=== PATIENT | male | born 1955 | race Caucasian/White ===

== ENCOUNTER 2019-03-29 05:51 | Inpatient (IN) | payer MEDICARE, BC ==
[2019-03-29] MEDS ORDERED: ACETAMINOPHEN 500 MG TABLET PO ONE (06:00)
[2019-03-29] MEDS ORDERED: CEFAZOLIN 2 Gram 2 GM/50 ML BAG IVPB ONE (06:00)
[2019-03-29] MEDS ORDERED: METOCLOPRAMIDE 10 MG TABLET PO ONE (06:00)
[2019-03-29] MEDS ORDERED: SCOPOLAMINE 1 PATCH TDSY TD ONE (06:00)
[2019-03-29] MEDS ORDERED: FAMOTIDINE 20MG TABLET PO ONE (06:00)
[2019-03-29] MEDS ORDERED: CELECOXIB 100 MG CAPSULE PO ONE (06:00)
[2019-03-29] MEDS ORDERED: RINGERS SOLUTION,LACTATED 1,000 ML IV ONE ×2 (06:49→08:39)
[2019-03-29] MEDS: VANCOMYCIN 1GM/200ML PREMIX 1 GM/200 ML PIGGYBACK IVPB ONE (06:51)
[2019-03-29 07:30] LABS: ABO GROUP O; ANTIBODY SCREEN NEGATIVE (NEGATIVE)
[2019-03-29 07:31] LABS: RH TYPE NEGATIVE
[2019-03-29] MEDS ORDERED: HYDROCODONE/APAP 7.5/325MG TABLET PO PRN (08:06)
[2019-03-29] MEDS ORDERED: NALOXONE 0.4 MG/1 ML VIAL IVP PRN (08:06)
[2019-03-29] MEDS ORDERED: ACETAMINOPHEN W/ CODEINE 300MG/60MG TABLET PO PRN (08:06)
[2019-03-29] MEDS ORDERED: ACETAMINOPHEN 325 MG TAB PO PRN (08:06)
[2019-03-29] MEDS ORDERED: AL HYDROX/MAG HYDROX 30ML UD PO PRN (08:06)
[2019-03-29] MEDS ORDERED: DIPHENHYDRAMINE HCL 25 MG CAPSULE PO PRN (08:06)
[2019-03-29] MEDS ORDERED: BISACODYL 10 MG SUPP RC PRN (08:06)
[2019-03-29] MEDS ORDERED: TRAMADOL HCL 50 MG TABLET PO PRN ×2 (08:06)
[2019-03-29] MEDS ORDERED: KETOROLAC 30 MG/ML VIAL IVP PRN (08:06)
[2019-03-29] MEDS ORDERED: ONDANSETRON HCL IV 4 MG/2 ML VIAL IVP PRN (08:06)
[2019-03-29] MEDS ORDERED: PROMETHAZINE HCL 12.5 MG in 0.9 % SODIUM CHLORIDE 100ML 50 ML IVPB PRN (08:06)
[2019-03-29] MEDS ORDERED: METOCLOPRAMIDE HCL 10 MG/2 ML VIAL IVP PRN (08:06)
[2019-03-29] MEDS ORDERED: HYDROCODONE/APAP 5/325MG TABLET PO PRN (08:06)
[2019-03-29] MEDS ORDERED: ACETAMINOPHEN W/ CODEINE 300MG/30MG TABLET PO PRN ×2 (08:06)
[2019-03-29] MEDS ORDERED: MAGNESIUM HYDROXIDE 30 ML UDC PO PRN (08:06)
[2019-03-29] MEDS ORDERED: ZOLPIDEM TARTRATE 5 MG TABLET PO PRN (08:06)
[2019-03-29] MEDS ORDERED: HYDROMORPHONE HCL 2 MG/ML VIAL IM PRN ×2 (08:06)
[2019-03-29] MEDS ORDERED: BUPIVACAINE LIPOSOME 266MG/20ML VIAL SQ ONE (08:38)
[2019-03-29] MEDS ORDERED: VANCOMYCIN HCL 1 GM VIAL IR ONE (08:38)
[2019-03-29] MEDS ORDERED: BUPIVACAINE 0.5% W/EPI MPF 30 ML VIAL SQ ONE (08:38)
[2019-03-29] MEDS ORDERED: TRANEXAMIC ACID 1,000 MG/10 ML ML IU ONE (08:38)
[2019-03-29] MEDS ORDERED: VANCOMYCIN HCL 1 GM VIAL IU ONE (08:38)
[2019-03-29] MEDS ORDERED: TRANEXAMIC ACID 1,000 MG/10 ML ML IVPB ONE (08:39)
[2019-03-29] MEDS: HYDROCODONE/APAP 5/325MG TABLET PO PRN ×3 (11:37→21:43)
[2019-03-29] MEDS: DEXTROSE 5 % AND 0.9 % NACL 1,000 ML IV PRN ×2 (12:51→21:35)
--- NOTE | 2019-03-29 14:02 | Operative Note ---
DATE OF SURGERY: 03/29/2019 PREOPERATIVE DIAGNOSIS: END STAGE LEFT KNEE ARTHROSIS. POSTOPERATIVE DIAGNOSIS: END STAGE LEFT KNEE ARTHROSIS. OPERATION: 1. HARDWARE REMOVAL TWO CANNULATED SCREWS IN THE TIBIAL PLATEAU FROM OLD FRACTURE. 2. TOTAL LEFT KNEE ARTHROPLASTY. SURGEON: Sahil Marrero M.D. ANESTHESIA: Spinal. ANESTHESIA PROVIDER: Celestina Bardales CRNA COMPLICATIONS: None. ESTIMATED BLOOD LOSS: Minimal. TOURNIQUET TIME: Approximately 80 minutes. OPERATIVE FINDINGS: [id number] medial and lateral compartment arthrosis, unhealed old tibial plateau fracture with two cannulated screws removed in their entirety. COMPONENTS PLACED: A [employer] II Oxinium total knee arthroplasty system, size 9 femoral component, a size 8 tibial base plate, a 11 mm thick tibial poly insert and 35 mm cemented patellar component. INDICATIONS: This is a 63-year-old male who has had persistent pain and dysfunction in the knee for several years. He is status post tibial plateau fracture and internal fixation with cannulated screws have been noted. Surgery is scheduled for procedures above. I explained the risks, and benefits in detail for the diagnosis and procedure including, but not limited to infection, nerve injury, vessel injury, persistent pain, stiffness, numbness, tingling in the knee, periprosthetic fracture, need for resection arthroplasty if components become infected or loosen, nerve injury, vessel injury, blood clot, and need for further procedures and need for anticoagulation to prevent blood clots, risks associated with these medications. All of his questions were answered, rehab course was outlined and he agreed to proceed. PROCEDURE: The patient brought to the Operating Room, placed in the supine position, prepped for surgery. Spinal anesthesia was induced. The left lower extremity and knee were prepped and draped in sterile fashion. The left knee was prepped again with ChloraPrep after it was draped. Intraoperative timeout was performed. Next, we used the previous incision, it was an anterolateral based incision from previous plateau fracture. We infiltrated that with 0.5% Marcaine with epinephrine tranexamic acid, Exparel mixture which we utilized throughout the entire case. Next, skin and subcutaneous tissue dissected down to the capsule. We carefully cauterized throughout the entire procedure using Aquamantys and did not use a Tourniquet. We did exsanguinate the leg previously. Next, we incised the capsule medially around the medial border of the patella to the tibial tubercle and incised the vastus medialis in line with its fibers in a mid vastus approach. We partially resected the retropatellar fat pad throughout the patella and we could have good exposure here. Attention was turned to the removal of the cannulated screws, we dissected down to the heads and found they were prominent laterally and easily identified. We then inserted our cannulated screwdriver with power and removed those screws without difficulty. Next, we continued with the knee replacement and we flexed the knee, elevated the capsule subperiosteally and medially, then used Aquamantys within each layer of approach. Next, drilled intracondylar femur drill hole, inserted the intramedullary guide batsheva, 6-degree cutting block, aligned the distal femoral condyles, and pinned it in +2mm position and cut the distal femoral condyles. Next, we placed a sizing jib on the distal femoral condyle and sized it to be right on size 9 as expected. Next, we placed pin holes and placed our size 9 cutting jig, went down the anterior cut and subchondral flush and found notching, we cut that because it was a good flush cut, we then pinned it and cut the remainder chamfer cuts in usual fashion. We placed a trial size 9 femoral component, centered it, pinned it and removed the osteophytes off of the medial and lateral edge of the components. Next, inserted resection, reamed out and box osteotomed on the cruciate bone block. Next attention was turned to the tibia and we exposed the proximal tibia and seated the spikes in anterior tubercular groove two fingerbreadths distal to the anterior distal cortex off the central third tibial tubercle. Referenced for a 9 mm cut off the high lateral plateau and we pinned that cutting jig provisional with two anterior posterior pins, we then rechecked the alignment with a cutting jig drop batsheva, centered on tibial anatomic axis and cross pinned the cutting jig to complete fixation and to cut the tibia. Next we removed osteophytes posterior femoral condyles with a curved osteotome, we then sized and checked flexion and extension gaps, and sized up to an 11 mm thick polyp insert, this allowed for 2-3 mm of varus valgus laxity and flexion and extension. Overall alignment, cuts, and extension was anatomic valgus orientation with alignment rods centered on the hip joint and ankle joint. Next took the knee in flexion and sized the tibial baseplate to a size 8. Replaced all trial components, set the rotation tibial baseplate again in extension using the alignment batsheva centered on the hip joint and ankle joint. Put pen gan on the anterior tibial cortex off the laser gan of the tibial baseplate. Attention was then turned to the patella. Next we measured the patella to be 25 mm. Set the cutting jib at 16 mm to allow for a 9 mm thick poly insert and then cut the patella. Remeasured. It was right on 15. We then sized it to be 35. Then drilled 3 peg holes, chamfered off the lateral patellar facet edges well and then did trial range of motion and mixed cement. The patella tracked nicely handsfree, full extension and flexion to 140-150 degrees,k again symmetric flexion/extension gap. Next took knee into flexion, placed bone plug in the femoral canal hole. We set the rotation tibial baseplate off the previously placed electrocautery gan, pinned it in place, drilled out the keel hole and then keel punched. Next, we placed the drill in the tibial keel hole and then irrigated copiously with pulse lavage and antibiotic solution. We changed gloves, brought in clean sheets, injected, we used Aquamantys in the posterior capsule again and injected the posterior capsule with our mixture again with several small sticks. Next we inserted the real tibial insert, distracted the bone with a bone hook and sponge, verified that it was interlocked medial and lateral. Then clamped down patella component, cement hardened, took knee in flexion, irrigated copiously and then inserted the rest of our mixture under the medial lateral capsule periosteum. Final range of motion appeared the same. We closed the capsule with #2 quill suture and the skin was closed with several buried 2-0 Vicryl and then a NIKOLE dressing was applied. The patient tolerated the procedure well. No intraoperative complications. Sponge, needle and blade counts were correct. He will be discharged to the floor and then discharged in three days back to rehab [facility]. JOB NUMBER: [id number] [facility]
--- NOTE | 2019-03-29 14:37 | Rehab Evaluation ---
Patient Information - Patient Information Diagnosis: L knee OA Ordered Treatment: PT Evaluate and Treat Status: Initial Evaluation Surgery: Yes (L TKA) Date of Surgery: 03/29/19 Past Medical/Surgical Hx: PAST MEDICAL/SURGICAL HISTORY Surgery to Affected Area? No Recent Surgery? Past Surgical History JAW SX LEFT HAND/WRIST ORIF RIGHT ANKLE ORIF LEFT KNEE RIGHT NEPHRECTOMY CARDIAC STENT 2013 C SCOPES EGDS PMH - Respiratory Hx Respiratory Disorders No PMH - Cardiovascular Hx Cardiovascular Disorders Yes Hx Abnormal EKG Yes Hx Cardiac Catheterization Yes Hx Heart Attack Yes: 2013 Hx Hypertension Yes: ON MEDS WITH GOOD CONTROL Hx Coronary Artery Disease Yes Hx Coronary Stent Yes: 2013 Exercise Tolerance Fair PMH - Neuro Hx Neurological Disorders No PMH - GI Hx Gastrointestinal Disorders Yes Hx Gastroesophageal Reflux Yes: CONTROLLED WITH MEDS Hx Nausea/Vomiting Yes: PT HAS EPISODES OF VOMITTING UNKNOWN ETIOLOGY ONSET 2004 PMH - Hx Genitourinary Disorders Yes Hx Bladder Problem Yes: HX CA Hx Renal Disease Yes: HX CANCER RIGHT NEPHRECTOMY PMH - Endocrine Hx Endocrine Disorders No PMH - Musculoskeletal Hx Musculoskeletal Disorders Yes Hx Arthritis Yes: RA AND OA LEFT KNEE PMH - Psych Hx Psychiatric Problems No PMH - Hematology/Oncology Hx Hematology/Oncology Yes Disorders Hx Cancer Yes: BLADDER AND KIDNEY CA Hx Chemotherapy No Hx Radiation Therapy No Premorbid Status: Detail (The patient was independent with all mobility prior to surgery.) Social History: Detail (The patient lives alone in a 2 story house with 3 steps at the enterance and one handrail. The bathroom is equipped with a tub/shower combination grab bars, standard height toilet and grab bars. The patient has a standard walker and standard cane. The patient does not have anyone to assist him following surgery.) Precautions: [place], Fall, Other (WBAT on the L LE.) - Time With Patient Total Time Spent With Patient (Min): 25 Treatment Procedures: Detail (Initial Evaluation, low complexity) Subjective Information - Subjective Information Per Patient (The patient had minimal complaints of pain which he did not rate using the 0-10 pain scale.) Objective Data - Mental Status Patient Orientation: Oriented x3 - Visual Perception Appears within normal limits for therapeutic activities - ROM Not within normal limits (L knee AROM is limited as to be expected s/p surgery. All other AROM is WNL.) - Strength/Tone Not within normal limits (The patient's LE Strength was not tested s/p surgery however was WFL.) - Bed Mobility Independent (The patient was independent with supine to and from sit transfer.) - Transfers Independent (The patient was independent with sit to and from stand transfer.) - Balance Balance Sitting: Good Balance Standing: Good - Sensation Intact - Gait Detail (The patient ambulated with front wheeled walker WBAT on L LE a distance of 130 feet x 1 with supervision for safety only.) Therapy Assessment - Therapy Assessment Detail (The patient was independent with bed mobility and transfers and ambulated with supervision for safety only. Will continue PT for 1-2 sessions to complete inpatient goals.) Problem List - Problem List Physical Therapy Problem List: Detail ( Decreased L knee AROM and Strength as to be expected following surgery.) Goals - Goals Physical Therapy Goals: 1) The patient will be independent with TKA HEP. 2) The patient will ambulate independently with appropriate assistive device community/ household distances. 3) The patient will ambulate on stairs using proper technique with supervision for safety. Prognosis - Prognosis Good Plan - Plan Physical Therapy Plan: PT for 1-2 sessions for gait training on levels and sta irs and instruction in TKA HEP.
[2019-03-29] MEDS ORDERED: LIDOCAINE 2% MDV (20MG/ML) 20ML VIAL IV ONE (15:28)
[2019-03-29] MEDS ORDERED: GLYCOPYRROLATE 0.2 MG/ML ML IV ONE (15:28)
[2019-03-29] MEDS ORDERED: PROPOFOL 10 MG/ML VIAL IV ONE (15:28)
[2019-03-29] MEDS ORDERED: MIDAZOLAM HCL 2MG/2ML VIAL IV ONE (15:28)
[2019-03-29] MEDS: DOCUSATE SODIUM 100 MG CAPSULE PO SCH ×2 (18:59→22:03)
[2019-03-29] MEDS ORDERED: VANCOMYCIN 1GM/200ML PREMIX 1 GM/200 ML PIGGYBACK IVPB SCH (19:00)
[2019-03-29] MEDS: VANCOMYCIN 1GM/200ML PREMIX 1 GM/200 ML PIGGYBACK IVPB SCH (21:36)
[2019-03-29] MEDS: FERROUS SULFATE 325 MG TAB PO SCH (22:03)
[2019-03-30] MEDS: HYDROCODONE/APAP 5/325MG TABLET PO PRN ×3 (04:33→15:46)
[2019-03-30] MEDS: OMEPRAZOLE 20MG PO SCH (06:18)
[2019-03-30 06:30] LABS: HEMATOCRIT 33.1 % (42.0-52.0); HEMOGLOBIN 10.7 gm/dl (14.0-18.0)
--- NOTE | 2019-03-30 10:19 | Rehab Evaluation ---
Patient Information - Patient Information Diagnosis: L knee OA Ordered Treatment: OT Evaluate and Treat Status: Initial Evaluation Surgery: Yes (L TKA) Date of Surgery: 03/29/19 Past Medical/Surgical Hx: PAST MEDICAL/SURGICAL HISTORY Surgery to Affected Area? No Recent Surgery? Past Surgical History JAW SX LEFT HAND/WRIST ORIF RIGHT ANKLE ORIF LEFT KNEE RIGHT NEPHRECTOMY CARDIAC STENT 2013 C SCOPES EGDS PMH - Respiratory Hx Respiratory Disorders No PMH - Cardiovascular Hx Cardiovascular Disorders Yes Hx Abnormal EKG Yes Hx Cardiac Catheterization Yes Hx Heart Attack Yes: 2013 Hx Hypertension Yes: ON MEDS WITH GOOD CONTROL Hx Coronary Artery Disease Yes Hx Coronary Stent Yes: 2013 Exercise Tolerance Fair PMH - Neuro Hx Neurological Disorders No PMH - GI Hx Gastrointestinal Disorders Yes Hx Gastroesophageal Reflux Yes: CONTROLLED WITH MEDS Hx Nausea/Vomiting Yes: PT HAS EPISODES OF VOMITTING UNKNOWN ETIOLOGY ONSET 2004 PMH - Hx Genitourinary Disorders Yes Hx Bladder Problem Yes: HX CA Hx Renal Disease Yes: HX CANCER RIGHT NEPHRECTOMY PMH - Endocrine Hx Endocrine Disorders No PMH - Musculoskeletal Hx Musculoskeletal Disorders Yes Hx Arthritis Yes: RA AND OA LEFT KNEE PMH - Psych Hx Psychiatric Problems No PMH - Hematology/Oncology Hx Hematology/Oncology Yes Disorders Hx Cancer Yes: BLADDER AND KIDNEY CA Hx Chemotherapy No Hx Radiation Therapy No Premorbid Status: Detail (The patient was independent with all mobility, meal pr ep, light home mgmt and laundry tasks prior to surgery. He reports he eats out a lot and his laundry is in his basement. He has a mid level clinician 1 time per month.) Social History: Detail (The patient lives alone in a 2 story house with 3 steps at the entrance and one handrail. The bathroom is equipped with a tub/shower combination with grab bars and a standard height toilet and grab bars. The patient has a standard walker and standard cane. The patient does not have anyone to assist him following surgery.) Precautions: [place], Fall, Other (WBAT on the L LE.) - Time With Patient Total Time Spent With Patient (Min): 45 Treatment Procedures: Detail (OT eval low complexity) Subjective Information - Subjective Information Per Patient Objective Data - Pain Pain Present: Yes (08/09) - Mental Status Patient Orientation: Oriented x3 - Visual Perception Appears within normal limits for therapeutic activities - ROM Within normal limits (Jules UE AROM WNL) - Strength/Tone Within normal limits (Jules UE strength WNL) - Coordination Appears within normal limits for therapeutic activities - Transfers Independent (Ind with sit to stand from recliner chair height.) - Balance Balance Sitting: Good Balance Standing: Fair - Sensation Intact - ADL's/IADL's Detail (Pt educated and able to demonstrate learning of modified LE dressing techniques including doffing briefs and donning underwear, sweatpants, socks and tennis shoes. Pt did require assist for left shoe as it was tight due to swelling. Reviewed kitchen and shower safety and modifications. Pt reports he is concerned as his laundry is in the basement and he does not have anyone to assist him.) Therapy Assessment - Therapy Assessment Detail (Pt required min assist to don tennis shoe due to edema, he is otherwise Ind with modified LE dressing techniques. Pt is planning to discharge to rehab for a short stay as he does not have assistance at home.) Problem List - Problem List Physical Therapy Problem List: Detail ( Decreased L knee AROM and Strength as to be expected following surgery.) Occupational Therapy Problem List: Detail (No current IP OT problems identified.) Goals - Goals Physical Therapy Goals: 1) The patient will be independent with TKA HEP. 2) The patient will ambulate independently with appropriate assistive device community/ household distances. 3) The patient will ambulate on stairs using proper technique with supervision for safety. Occupational Therapy Goals: No current IP OT goals identified. Prognosis - Prognosis Good Plan - Plan Physical Therapy Plan: PT for 1-2 sessions for gait training on levels and stairs and instruction in TKA HEP. Occupational Therapy Plan: No further IP OT recommended. Pt would benefit from a short IP rehab stay due to his home set up and lack of available assistance. Thank you for this referral.
[2019-03-30] MEDS: RIVAROXABAN 10 MG TABLET PO SCH (10:48)
[2019-03-30] MEDS: DOCUSATE SODIUM 100 MG CAPSULE PO SCH ×2 (10:48→22:00)
[2019-03-30] MEDS: CELECOXIB 100 MG CAPSULE PO SCH (10:48)
[2019-03-30] MEDS: FERROUS SULFATE 325 MG TAB PO SCH ×2 (10:48→22:00)
[2019-03-30] MEDS: ATORVASTATIN 80MG PO SCH (10:49)
[2019-03-30] MEDS: METOPROLOL SUCCINATE 25MG PO SCH (10:50)
[2019-03-30] MEDS: LISINOPRIL 10MG PO SCH (10:50)
[2019-03-30] MEDS: MULTIVITAMIN PO SCH (10:51)
[2019-03-30] MEDS: VANCOMYCIN 1GM/200ML PREMIX 1 GM/200 ML PIGGYBACK IVPB SCH (10:51)
[2019-03-30] MEDS: VITAMIN D 2000 UNITS PO SCH (10:51)
--- NOTE | 2019-03-30 11:39 | Physical Therapy Tx Note ---
Physical Therapy Tx Note - Treatment Note Tolerated: Fair Total Time Spent With Patient: 25 Physical Therapy Tx Note: Detail (The patient was up in chair when PT arrived. The patient was complaining of L Knee pain but did not rate pain using 0-10 pain scale. The patient ambulated independently with front wheeled walker a distance of 120 feet x 1 WBAT on L LE. The patient ambulated on 3 steps with use of one railing and standard cane with supervision for safety only. The patient declined ambulation on a flight of stairs. The patient was independent with sit to and from stand transfer and supine to and from sit . The patient completed HEP of TKA exercises including: ankle pumps, SLR, quad sets, gluteal sets, hamstring sets and partial heel slide.( The patient had difficulty completing a heel slide due to pain). The patient has met all inpatient PT goals and is discharged from inpt. PT. Due to living alone and laundry in basement ( requiring a flight of stairs) patient would possibly benefit from short term subacute rehab to work on independence with all home chores including cooking, laundry etc.) Physical Therapy Problem List: Detail ( Decreased L knee AROM and Strength as to be expected following surgery.) Physical Therapy Goals: 1) The patient will be independent with TKA HEP (Goal Met). 2) The patient will ambulate independently with appropriate assistive device community/ household distances.(Goal Met). 3) The patient will ambulate on stairs using proper technique with supervision for safety. (Goal Met) Physical Therapy Plan: The patient has met all inpt goals and is discharged from inpatient PT.
[2019-03-30] MEDS: VANCOMYCIN 1GM/200ML PREMIX 1 GM/200 ML PIGGYBACK IVPB ONE (12:00)
--- NOTE | 2019-03-30 19:18 | RADIOLOGY REPORT ---
EXAMINATION: Frontal and Lateral Chest EXAM DATE: 03/30/2019 5:09 PM INDICATION: Subacute rehab request (per protocol) FINDINGS: Frontal and lateral views show clear lungs, normal heart size, and normal hilar and mediast inal structures. IMPRESSION: Normal chest. Dictated by: Clay Anderson MD on 03/30/2019 7:15 PM. .
[2019-03-31] MEDS: OMEPRAZOLE 20MG PO SCH (06:18)
[2019-03-31 06:53] LABS: HEMATOCRIT 32.3 % (42.0-52.0); HEMOGLOBIN 10.6 gm/dl (14.0-18.0)
[2019-03-31] MEDS: CELECOXIB 100 MG CAPSULE PO SCH (10:12)
[2019-03-31] MEDS: FERROUS SULFATE 325 MG TAB PO SCH ×2 (10:12→21:11)
[2019-03-31] MEDS: RIVAROXABAN 10 MG TABLET PO SCH (10:12)
[2019-03-31] MEDS: ATORVASTATIN 80MG PO SCH (10:13)
[2019-03-31] MEDS: DOCUSATE SODIUM 100 MG CAPSULE PO SCH ×2 (10:13→21:11)
[2019-03-31] MEDS: METOPROLOL SUCCINATE 25MG PO SCH (10:14)
[2019-03-31] MEDS: LISINOPRIL 10MG PO SCH (10:14)
[2019-03-31] MEDS: MULTIVITAMIN PO SCH (10:15)
[2019-03-31] MEDS: VITAMIN D 2000 UNITS PO SCH (10:15)
[2019-04-01] MEDS: OMEPRAZOLE 20MG PO SCH (07:47)
[2019-04-01] MEDS: RIVAROXABAN 10 MG TABLET PO SCH (09:24)
[2019-04-01] MEDS: DOCUSATE SODIUM 100 MG CAPSULE PO SCH (09:24)
[2019-04-01] MEDS: CELECOXIB 100 MG CAPSULE PO SCH (09:24)
[2019-04-01] MEDS: FERROUS SULFATE 325 MG TAB PO SCH (09:24)
[2019-04-01] MEDS: ATORVASTATIN 80MG PO SCH (09:27)
[2019-04-01] MEDS: LISINOPRIL 10MG PO SCH (09:27)
[2019-04-01] MEDS: MULTIVITAMIN PO SCH (09:28)
[2019-04-01] MEDS: METOPROLOL SUCCINATE 25MG PO SCH (09:28)
[2019-04-01] MEDS: VITAMIN D 2000 UNITS PO SCH (09:28)
[2019-04-01] MEDS ORDERED: REMOVE PATCH 1 EACH MISC TD ONE (10:00)
== END 2019-04-01 14:20 | DRG 470 ==
LOC: SUR 05:51 → MEDSURG 05:51 → EDSTATUS 08:00 → SUR 10:58 → MEDSURG 10:58
PROVIDERS: ADMIT Orthopaedic Surgery; ATTEND Orthopaedic Surgery
PROC: 0SRD069 Replacement of Left Knee Joint with Oxidized Zirconium on Polyethylene Synthetic Substitute, Cemented, Open Approach (ICD-10-PCS; principal; 2019-03-29 08:00)
DX: M17.12 Unilateral primary osteoarthritis, left knee (principal); I10 Essential (primary) hypertension; E78.00 Pure hypercholesterolemia, unspecified; M06.9 Rheumatoid arthritis, unspecified; K21.9 Gastro-esophageal reflux disease without esophagitis; I25.10 Atherosclerotic heart disease of native coronary artery without angina pectoris; I25.2 Old myocardial infarction; Z90.5 Acquired absence of kidney
CPT/HCPCS: 71046; 76942; 85014; 85018; 86850; 86900; 86901; C1776; J2405; J2765; J3370; J7042; J7120